=== PATIENT | female | born 1960 | race Caucasian/White ===

== ENCOUNTER 2018-06-08 12:55 | Day surgery (SDC) | payer MEDICARE, SELFPAY ==
[2018-06-08 13:34] VITALS: BP 152/83; PULSE 111; RESP 16; TEMP 36.6; O2SAT 97; BMI 30.2
[2018-06-08] MEDS: SODIUM CHLORIDE 0.9% 1,000 ML 200 ML IV (15:33)
[2018-06-08] MEDS: MIDAZOLAM 5 MG/5 ML VIAL IV (16:09)
[2018-06-08] MEDS: fentaNYL 250 MCG/5 ML INJ IV (16:09)
[2018-06-08 16:15] VITALS: BP 120/70; PULSE 93; RESP 17; TEMP 36.6; O2SAT 92
[2018-06-08 16:20] VITALS: BP 127/74; PULSE 93; RESP 13; O2SAT 93
[2018-06-08 16:25] VITALS: BP 130/78; PULSE 94; RESP 11; O2SAT 95
[2018-06-08 16:36] VITALS: BP 130/72; PULSE 78; RESP 12; TEMP 36.4; O2SAT 98
--- NOTE | 2018-06-09 08:05 | HP_ITS ---
DATE OF SERVICE: June 08, 2018. PRE-OPERATIVE DIAGNOSIS: Screening colonoscopy. HISTORY OF PRESENT ILLNESS: The patient is a 58-year-old white female who had a colonoscopy a number of years ago to evaluate her for possible celiac disease, and she said she actually does have celiac disease, so she has been on a gluten- free diet since then. They found no polyps at that time. She has had no melena or hematochezia. PAST MEDICAL HISTORY: The patient has had bilateral hip replacement and knee operation, hysterectomy, and a cholecystectomy. She does have hypertension, takes lisinopril 10 mg a day. ALLERGIES: NO MEDICAL ALLERGIES ARE KNOWN. REVIEW OF SYSTEMS: Negative for chest pain or unusual shortness of breath. She has no history of myocardial infarction. No angina. GI is as mentioned in the HPI, positive for sprue. is negative. Neurologic: No strokes or seizures. PHYSICAL EXAMINATION VITAL SIGNS: Blood pressure 140/85, heart rate in the 80s. HEENT: Normal. NECK: No adenopathy. LUNGS: Clear. HEART: Regular rhythm. No murmur. ABDOMEN: Soft. No organomegaly. No tenderness. No masses. RECTAL: Will be done at the time of the colonoscopy. DIAGNOSIS: Screening colonoscopy, history of celiac disease. Selma Vallejo - /cathleen/ana doc#: [id number]/job#: [id number] dd: 06/08/2018 15:30:00 dt: 06/09/2018 07:55:00 DICTATING /COPIES TO: Chaitanya Do MD COPIES MNE: NELIDA
--- NOTE | 2018-06-11 07:51 | OP_ITS ---
DATE OF SERVICE: 06/08/2018 PREOP DIAGNOSIS: Screening colonoscopy, history of celiac disease. POSTOP DIAGNOSIS: Severe left colonic diverticulosis. No evidence of acute diverticulitis, but rigidity and countless diverticula in the entire left colon up to the splenic flexure. The exam had to be terminated at just beyond the splenic flexure because of patient discomfort and maximized dosage of conscious sedation, including Versed 6 mg and fentanyl 300 mcg, so that was a colonoscopy just up to the splenic flexure. The transverse and right colon were not seen. SURGEON: Chaitanya Do MD DESCRIPTION OF PROCEDURE: The patient was properly identified during surgical pause. Flexible fiberoptic colonoscope inserted transanally to the splenic flexure with great deal of difficulty and copious amount of Versed and fentanyl, 6 of Versed, 300 of fentanyl. I was just able to get the colonoscope up to the splenic flexure. I aborted the procedure because of patient discomfort. We positioned the patient on the left side, positioned her on her back, used water insufflation, saline insufflation, and air insufflation, and I could not comfortably negotiate the scope beyond the splenic flexure. No tumors, no polyps are seen. Numerous diverticula are scattered throughout the entire left colon, and there was a great deal of rigidity to that segment of colon. The procedure was tolerated in a stable condition with stable vital signs and good oxygenation throughout. Selma Vallejo - Javi/chris doc#: [id number]/job#: [id number] dd: 06/08/2018 16:23:00 dt: 06/08/2018 20:13:00 DICTATING MD/COPIES TO: Chaitanya Do MD COPIES MNE: NELIDA
== END 2018-06-08 16:51 | disposition home or self-care (01) ==
PROVIDERS: PCP Family Medicine; Visit Provider Surgery
PROC: 0DJD8ZZ Inspection of Lower Intestinal Tract, Via Natural or Artificial Opening Endoscopic (ICD-10-PCS; CPT 45378; principal; 2018-06-08 14:45)
DX: Z12.11 Encounter for screening for malignant neoplasm of colon (principal); K57.30 Diverticulosis of large intestine without perforation or abscess without bleeding; K90.0 Celiac disease; I10 Essential (primary) hypertension; Z53.09 Procedure and treatment not carried out because of other contraindication
CPT/HCPCS: G0121; J2250; J3010

== ENCOUNTER 2018-09-19 08:48 | Day surgery (SDC) | payer MEDICARE, SELFPAY ==
--- NOTE | 2018-09-19 | PATH_ITS ---
[facility] Accession Number: [id number] . 01 Material submitted: . PART A: CECAL POLYP PART B: HEPATIC FLEXURE PART C: COLON POLYP AT 55CM X2 . 01 Clinical history: . B: MUCOSAL IRREGULARITY . 02 Diagnosis: A. Cecum, Polyp, Biopsy: Colonic mucosa with no significant diagnostic abnormality, consistent with polypoid redundancy. Additional levels were examined. Negative for dysplasia and malignancy. . B. Hepatic Flexure, Biopsy: Colonic mucosa with features suggestive of mucosal prolapse and no other diagnostic abnormalities. Additional levels were examined. Negative for dysplasia and malignancy. . C. Colon, Polyp at 55 cm x2, Biopsies: Tubular adenoma in one of three fragments. Hyperplastic polyp in one fragment. [facility]/09/21/2018 . 02 Electronically signed: . Addis Munoz MD, Pathologist NPI- [id number] . 01 Gross description: . Received three formalin-filled containers each labeled with the patient's name. . A. In a container labeled cecal polyp are two 0.1 to 0.2 cm portions of tissue. Entirely submitted in cassette A. B. In a container labeled hepatic flexure mucosal irregularity, the specimen consists of a 0.1 cm portion of tissue. Entirely submitted in cassette B. C. In a container labeled colon polyp at 55 cm X2, the specimen consists of three 0.2 to 0.4 cm portions of tissue. Entirely submitted in cassette C. ([facility] [place]:[id number]) /[facility] . 02 Pathologist provided ICD-10: D12.6 . 02 CPT . 831765, 250326, 824472 Performed at: [address], [place], [place] [id number] MD Boy Nava MD Phone: [phone] Performed at: 02 [facility] [address] [place] [id number] MD Addis Munoz MD Phone: [phone]
[2018-09-19 09:15] VITALS: BP 118/73; PULSE 93; RESP 15; TEMP 36.3; O2SAT 96
[2018-09-19] MEDS: LACTATED RINGERS 1,000 ML 42 ML IV (09:17)
[2018-09-19 09:20] VITALS: BMI 30.7
--- NOTE | 2018-09-19 11:14 | PM.PREOP ---
Pre-operative Note Interval Note History & Physical reviewed/Exam performed by Physician: Yes Changes to H&P: No H&P completed within 30 days and has changed as indicated here:: No changes since seen in the office on August 21, 2018
[2018-09-19 11:46] VITALS: BP 122/60; PULSE 96; RESP 11; TEMP 36.2; O2SAT 94
--- NOTE | 2018-09-19 11:48 | PM.OP.1 ---
Operative Date/Time/Diagnoses Date of procedure: 09/19/18 Time of procedure: 11:48 Pre-op diagnosis: Recurrent diverticulitis Screening Post-op diagnosis: same Procedure & Clinicians Procedure: Colonoscopy to the cecum with multiple polypectomies Same procedure as scheduled: Yes Indications: Incomplete prior study so no complete colonoscopy previously Surgeon: Hermila Brewer Anesthesia Type: General (Dr. Rand) Operative Notes Findings: 1. Adequate prep 2. Diminutive sessile polyp at the cecum removed with cold forceps and retained for pathology 3. Mucosal irregularity at the pad flexure-biopsied with cold forceps and retained for pathology 4. Two 3-4 mm sessile polyps at 55 cm removed with cold forceps and retained for pathology 5. Stiffening of the sigmoid colon with significant diverticulosis from 25 cm to 15 cm. No obvious evidence of current inflammation. No erythema. No evidence of colitis. 6. Grade 1 internal hemorrhoids Closure Type: not applicable Estimated Blood Loss (mL): 2 Procedure in detail: After obtaining informed consent, the patient was brought to the GI suite and placed in the left lateral decubitus position on the examination table. After placement of appropriate monitors, the patient was given general anesthesia. A time out was held per [facility] protocol. A digital rectal examination was performed and did not reveal any masses or obstructing lesions. The colonoscope was gently passed into the patient's anus and the entire colon navigated to the level of the cecum with minimal difficulty. Once in the cecum, the scope was withdrawn being sure to go before and beyond all mucosal folds and prominences and get an excellent examination. The findings are noted above. At the level of the rectal vault, the scope was retroflexed and the internal anal canal was examined. The scope was straightened and air aspirated from the colon. The instrument was removed from the patient's body and the procedure was concluded. The patient was allowed to awaken from sedation without difficulty and taken to the post-anesthesia care unit in good condition. Total withdrawal time was 16 min and 7 sec Complications: none Condition: stable Disposition: PACU Plan for aftercare: 1. Discharge to home 2. We will contact you with pathology results and recommendations.
[2018-09-19 11:51] VITALS: BP 106/61; PULSE 94; RESP 10; O2SAT 98
[2018-09-19 11:56] VITALS: BP 109/52; PULSE 87; RESP 9; TEMP 36.7; O2SAT 95
[2018-09-19 12:01] VITALS: BP 115/54; PULSE 86; RESP 11; O2SAT 93
[2018-09-19 12:40] VITALS: BP 105/58; PULSE 80; RESP 20; TEMP 36.9; O2SAT 98
== END 2018-09-19 12:43 | disposition home or self-care (01) ==
PROVIDERS: PCP Family Medicine; Visit Provider Surgery
PROC: 0DJD8ZZ Inspection of Lower Intestinal Tract, Via Natural or Artificial Opening Endoscopic (ICD-10-PCS; CPT 45378; principal; 2018-09-19 10:15)
DX: K57.30 Diverticulosis of large intestine without perforation or abscess without bleeding (principal); K64.0 First degree hemorrhoids; Z87.891 Personal history of nicotine dependence; D12.6 Benign neoplasm of colon, unspecified
CPT/HCPCS: 45380; 88305; 99152; J2704; J3010